=== PATIENT | male | born 1960 | race Caucasian/White ===

== ENCOUNTER → 2018-05-17 | Outpatient (CLI) | payer OTHER ==
[2018-05-17 08:17] LABS: Blood Urea Nitrogen 15 mg/dL (9-20)
--- NOTE | 2018-05-17 12:09 | CT ---
EXAMINATION TYPE: CT iac wo con DATE OF EXAM: 05/17/2018 COMPARISON: HISTORY: Hearing Loss CT DLP: 786.60mGycm Automated exposure control for dose reduction was used. FINDINGS: The external auditory canals are patent bilaterally. Mastoid air cells show no evidence of abnormal opacification bilaterally. The middle ear ossicles are symmetric and unremarkable. There is no evidence of suspicious surrounding soft tissue density to suggest cholesteatoma. The scutum is preserved bilaterally. The cochlea and the semicircular canals are symmetric and unremarkable. Ves tibular aqueduct and internal carotid canal appear unremarkable. Temporomandibular joints are mainta ined bilaterally. Mild mucosal disease present in the maxillary sinuses. IMPRESSION: No significant abnormality seen to account for patient's symptoms.
--- NOTE | 2018-05-17 12:11 | CT ---
EXAMINATION TYPE: CT soft tissue neck w con DATE OF EXAM: 05/17/2018 9:00 AM COMPARISON: None HISTORY: Hearing loss CT DLP: 150.00 mGycm Automated exposure control for dose reduction was used. CONTRAST: CT scan of the neck is performed following with IV Contrast, patient injected with 100 ml mL of Isovu e 300. Axial images are obtained, coronal and sagittal reformatted images are reviewed. FINDINGS: Airway: No gross abnormality seen. Parotid/submandibular glands: No gross abnormality seen. Carotid/Vascular Structures: Patent. No evident internal carotid artery stenosis. Left vertebral zackery ry is dominant. Osseous Structures: Degenerative disc changes are present in the visualized cervical spine. Other: Lung apices are unremarkable. No evident adenopathy. IMPRESSION: No significant abnormalities evident
== END | disposition home or self-care (01) ==
LOC: RADCTMAIN 07:32
DX: H91.8X3 Other specified hearing loss, bilateral (principal)
CPT/HCPCS: 82565; 84520; 70491; 70480; 36415; Q9967

== ENCOUNTER → 2019-01-31 | Outpatient (CLI) | payer BC, OTHER ==
--- NOTE | 2019-01-31 16:52 | PN ---
PROGRESS NOTE DATE OF SERVICE: 01/31/2019 This patient is a 58-year-old gentleman who has [facility] treatment of obstructive sleep apnea-hypopnea syndrome. Patient continues to use CPAP equipment every night for the whole night but recently developed episodes of awakenings from sleep multiple times while using his CPAP equipment. [place] Sleepiness Scale today is 10, which is above normal range. His weight has increased 40 pounds, and I recommended repeating the sleep study about half a year ago, but for different reasons it was not done. MEDICATIONS: 1. Metformin. 2. Lisinopril/hydrochlorothiazide. 3. Simvastatin. 4. Lyrica. 5. Naproxen. 6. Amitriptyline. 7. Imodium on a p.r.n. basis. PHYSICAL EXAMINATION: GENERAL: A pleasant gentleman without distress. VITAL SIGNS: BP 126/83, HR 91, RR 16, height 6 feet 3 inches, weight 339, temperature 98.2, oxygen saturation at room air 94%. HEENT: PERRLA, EOMI. Evaluation of oropharynx showed tongue protrudes midline. Extremely low position of soft palate. Mallampati IV. NECK: Supple. No JVD. Thyroid is not palpable. LUNGS: Clear to percussion and to auscultation. Good air exchange. No wheezing or rhonchi. HEART: S1, S2 regular. No murmurs, gallops or rubs. ABDOMEN: Obese. EXTREMITIES: One plus ankle edema. SENIOR PEOPLESOFT DEVELOPER: Awake, alert, and oriented X3. Cranial nerves 2 to 7 intact. There is no fasciculation or atrophy. noted. No focal deficits observed. IMPRESSION: 1. Obstructive sleep apnea-hypopnea syndrome. The patient continues to use his machine, but his weight has increased by around 40 pounds and he has awakenings from sleep and sleepiness during the day. 2. Obesity. 3. Hypertension. 4. Hyperlipidemia. 5. Diabetes mellitus. 6. History of floppy eyelid syndrome, status post surgical treatment. 7. Left knee problems. 8. Status post tonsillectomy. 9. Status post cholecystectomy. 10.Post-traumatic stress disorder. 11.History of irritable bowel syndrome. PLAN: 1. Repeat CPAP titration for re-evaluation of effective CPAP pressure at the present time. 2. Losing weight. 3. Sleep hygiene with regular time in bed for at least 8 hours. 4. Continue to use CPAP equipment every night. Thank you very much for allowing me to participate in the management of your patient. Sincerely, Ozzie Schuler MD, PhD, FAASM Diplomat of [place] [employer] [place] [employer]ing Clerk [facility] [place] MMODL / LEVIN: [phone] /
== END | disposition home or self-care (01) ==
LOC: SLEEP 15:25
PROVIDERS: ATTEND Internal Medicine
DX: G47.33 Obstructive sleep apnea (adult) (pediatric) (principal); E66.9 Obesity, unspecified; I10 Essential (primary) hypertension; E78.5 Hyperlipidemia, unspecified; E11.9 Type 2 diabetes mellitus without complications; F43.10 Post-traumatic stress disorder, unspecified; M25.9 Joint disorder, unspecified; Z87.19 Personal history of other diseases of the digestive system; Z86.69 Personal history of other diseases of the nervous system and sense organs; Z99.89 Dependence on other enabling machines and devices; Z90.49 Acquired absence of other specified parts of digestive tract; Z90.09 Acquired absence of other part of head and neck; Z98.890 Other specified postprocedural states; Z79.84 Long term (current) use of oral hypoglycemic drugs; Z79.1 Long term (current) use of non-steroidal anti-inflammatories (NSAID); Z79.899 Other long term (current) drug therapy
CPT/HCPCS: 99211

== ENCOUNTER 2019-02-01 06:47 | Day surgery (SDC) | payer BC, OTHER ==
[2019-01-30 16:08] VITALS: BMI 41.8
[~2019-02-01 06:47] MED LIST: LACTATED RINGERS 1,000 ML IV SCH; LIDOCAINE 1% 20 ML VIAL (10MG/ML) FOR IV START INTRADERMA PRN
[2019-02-01 07:00] VITALS: RESP 18; TEMP 97
[2019-02-01] MEDS ORDERED: LACTATED RINGERS 1,000 ML IV ONE (07:00)
[2019-02-01 07:06] LABS: Glucose,Whole Blood 170 mg/dL (75-99)
[2019-02-01] MEDS ORDERED: PROPOFOL 10 MG/ML 20 ML VIAL IV ONE (07:39)
--- NOTE | 2019-02-01 08:13 | P.PCN ---
Date of Procedure: 02/01/19 Description of Procedure: BRIEF HISTORY: Patient is a 58-year-old pleasant male scheduled for an elective colonoscopy as a part of melena and altered bowel habits. The patient reports that at baseline he has loose bowel movements and that this is been present for results he can remember. He states he has been diagnosed with IBS past. However he has had some altered bowel habits recently with constipation reported. He denies any bright red blood per rectum. He denies any prior colonoscopy. No family history CANCER. PROCEDURE PERFORMED: Colonoscopy. PREOPERATIVE DIAGNOSIS: Melena, altered bowel habits, no prior colonoscopy reported. ESTIMATED BLOOD LOSS: Minimal. IV sedation per Anesthesia. PROCEDURE: After informed consent was obtained, the patient, was brought into the endoscopy unit. IV sedation was administered by Anesthesia under continuous monitoring. Digital rectal examination was normal. Initially the Olympus CF-190 flexible video colonoscope was then inserted in the rectum, gradually advanced into the cecum without any difficulty. The terminal ileum was intubated and appeared normal. Careful examination was performed as the scope was gradually being withdrawn. Ileocecal valve and the appendiceal orifice were visualized and appeared normal. Prep was excellent. Mucosa of the cecum, ascending colon, transverse colon, descending colon, sigmoid colon, and rectum appeared normal. Retroflexion was performed in the rectum and no lesions were seen, with mild internal hemorrhoids noted. The patient tolerated the procedure well. IMPRESSION: Normal-appearing colon from rectum to cecum and normal appearing terminal ileum. Mild internal hemorrhoids RECOMMENDATIONS: Findings of this examination were discussed with the patient. Okay to resume diet. Okay to resume medications. Recommendation is for repeat colonoscopy in 10 years or sooner if signs or symptoms which warrant evaluation developed.
[2019-02-01 08:54] VITALS: BP 151/93; PULSE 76
== END 2019-02-01 09:14 | disposition home or self-care (01) ==
LOC: ORWHC2ENDO 06:47
PROVIDERS: ATTEND Internal Medicine
DX: R19.4 Change in bowel habit (principal); K92.1 Melena; K64.8 Other hemorrhoids; I10 Essential (primary) hypertension; G47.33 Obstructive sleep apnea (adult) (pediatric); Z99.89 Dependence on other enabling machines and devices; E11.9 Type 2 diabetes mellitus without complications; Z79.84 Long term (current) use of oral hypoglycemic drugs; E66.9 Obesity, unspecified; Z68.41 Body mass index [BMI] 40.0-44.9, adult
CPT/HCPCS: 45378; J2704

== ENCOUNTER → 2019-08-14 | Outpatient (CLI) | payer OTHER ==
[2019-08-14 15:14] LABS: Basophils % (A) 1 %; Eosinophils # (A) 0.2 k/uL (0-0.7); Eosinophils % (A) 3 %; HGB 14.1 gm/dL (13.0-17.5); Lymphocytes # (A) 2.1 k/uL (1.0-4.8); Lymphocytes % (A) 34 %; MCH 29.9 pg (25.0-35.0); MCHC 33.5 g/dL (31.0-37.0); MCV 89.3 fL (80.0-100.0); Monocytes # (A) 0.3 k/uL (0-1.0); Monocytes % (A) 5 %; Neutrophils # (A) 3.4 k/uL (1.3-7.7); Neutrophils % (A) 56 %; Platelet Count 199 k/uL (150-450); RDW 13.1 % (11.5-15.5); WBC 6.1 k/uL (3.8-10.6)
[2019-08-14 15:22] LABS: ABG Base Excess 2.5 mmol/L; ABG HCO3 27 mmol/L (21-25); ABG Oxygen Saturation 93.5 % (94-97); ABG PCO2 39 mmHg (35-45); ABG PH 7.44 (7.35-7.45); ABG PO2 70 mmHg (83-108); ABG TCO2 28 mmol/L (19-24); Allen Test Performed? Yes
[2019-08-15 00:08] LABS: African American GFR (CKD) 84.7 (60.0-200.0); Anion Gap 10.8 mmol/L (4.00-12.00); BUN/Creat Ratio 9.09 Ratio (12.00-20.00); Calcium 9.5 mg/dL (8.7-10.3); Carbon Dioxide 30.2 mmol/L (21.6-31.8); Non-African American GFR(CKD) 73.1 (60.0-200.0); Potassium 4.7 mmol/L (3.5-5.5)
== END | disposition home or self-care (01) ==
LOC: LABWHC1 14:51
PROVIDERS: ATTEND Internal Medicine
DX: R06.00 Dyspnea, unspecified (principal)
CPT/HCPCS: 36415; 36600; 80048; 82805; 85025; 85379

== ENCOUNTER → 2019-08-14 | Outpatient (CLI) | payer OTHER ==
--- NOTE | 2019-08-14 18:53 | CT ---
EXAMINATION TYPE: CT angio chest DATE OF EXAM: 08/14/2019 COMPARISON: None HISTORY: elevated d-dimer, leg swelling CT DLP: 605.5 mGycm Automated exposure control for dose reduction was used. There are 3-D post processed images. CONTRAST: Performed with IV Contrast, patient injected with 69cc mL of Isovue 370. The lungs are clear of infiltrate. There is no pleural effusion. There is no evidence of a pulmonary mass. heart size is normal. There is no pericardial effusion. There is some coronary artery calcific ation. Thoracic aorta appears intact without evidence of aneurysm. Ascending aorta measures 3.9 cm. T here is no mediastinal adenopathy. There are no hilar masses. There is normal contrast opacification of the pulmonary arteries. I see no filling defect. There are clips from cholecystectomy. Upper abdominal soft tissues appear intact. Thoracic vertebra have normal alignment. I see no bony destructive process in the bony thorax. IMPRESSION: No evidence of pulmonary embolism. Negative exam.
== END | disposition home or self-care (01) ==
LOC: RADCTMAIN 17:23
PROVIDERS: ATTEND Internal Medicine
DX: R06.02 Shortness of breath (principal)
CPT/HCPCS: 82565; 84520; 71275; 36415; Q9967

== ENCOUNTER → 2019-09-24 | Outpatient (CLI) | payer OTHER ==
[2019-09-24 16:27] LABS: HCT 44.1 % (39.0-53.0); MCH 30.6 pg (25.0-35.0); MCHC 34.1 g/dL (31.0-37.0); Mean Platelet Volume 8.4; Platelet Count 193 k/uL (150-450); RDW 12.4 % (11.5-15.5); WBC 6.7 k/uL (3.8-10.6)
[2019-09-24 16:30] LABS: Potassium 5.4 mmol/L (3.5-5.1)
== END | disposition home or self-care (01) ==
LOC: LABWHC1 15:06
PROVIDERS: ATTEND Internal Medicine Interventional Cardiology
DX: Z01.818 Encounter for other preprocedural examination (principal); R07.9 Chest pain, unspecified
CPT/HCPCS: 36415; 80051; 82565; 84520; 85027

== ENCOUNTER → 2021-01-22 | Outpatient (CLI) | payer OTHER | END | disposition home or self-care (01) ==

== ENCOUNTER → 2022-06-04 | Outpatient (CLI) | payer OTHER ==
[2022-06-04 22:50] LABS: Basophils # (A) 0.07 X 10*3/uL (0.00-0.10); Basophils % (A) 1.1 %; Eosinophils # (A) 0.27 X 10*3/uL (0.04-0.35); Eosinophils % (A) 4.3 %; HCT 46.8 % (39.6-50.0); HGB 15.8 g/dL (13.0-17.0); Immature Grans, Automated 0.3 %; Lymphocytes # (A) 2.15 X 10*3/uL (0.90-5.00); Lymphocytes % (A) 34.1 %; MCH 31.2 pg (27.0-32.0); MCHC 33.8 g/dL (32.0-37.0); MCV 92.3 fL (80.0-97.0); Mean Platelet Volume 10.7 fL (9.5-12.2); Monocytes # (A) 0.57 X 10*3/uL (0.20-1.00); NRBC Per 100 WBC 0 /100 WBCS (0.0-0.0); Neutrophils # (A) 3.22 X 10*3/uL (1.80-7.70); Neutrophils % (A) 51.2 %; Platelet Count 187 X 10*3/uL (140-440); RBC 5.07 X 10*6/uL (4.40-5.60); RDW 12.5 % (11.5-14.5)
[2022-06-04 23:32] LABS: African American GFR (CKD) 74.7 (60.0-200.0); Anion Gap 10.1 mmol/L (10.00-18.00); BUN/Creat Ratio 14.42 Ratio (12.00-20.00); Blood Urea Nitrogen 17.3 mg/dL (9.0-27.0); Calcium 9.6 mg/dL (8.7-10.3); Carbon Dioxide 30.9 mmol/L (20.0-27.5); Non-African American GFR(CKD) 64.4 (60.0-200.0); Potassium 4.6 mmol/L (3.5-5.5)
== END | disposition home or self-care (01) ==
LOC: LABPAT 15:37
PROVIDERS: ATTEND Orthopaedic Surgery Hand Surgery
DX: Z01.818 Encounter for other preprocedural examination (principal); G56.01 Carpal tunnel syndrome, right upper limb; R94.31 Abnormal electrocardiogram [ECG] [EKG]
CPT/HCPCS: 80048; 85025; 93005

== ENCOUNTER 2022-06-09 12:57 | Day surgery (SDC) | payer OTHER ==
[2022-06-07 11:47] VITALS: BMI 34.9
--- NOTE | 2022-06-08 10:10 | P.HPOR ---
History of Present Illness H&P Date: 06/08/22 Chief Complaint: Right carpal tunnel syndrome Subjective: This is a 61 year old male that presents today for follow up evaluation regarding a several year history of progressively worsening right hand paresthesias in the thumb, index, middle and ring fingers. They have tried braces at night with little relief. They deny any inciting event or neck pain. He notices some weakness and loss of manager facility strength. Physical Examination: RUE: AIN/PIN/Radial/Ulnar/Median motor intact. Radial/Ulnar/Median SILT. 2+/4 Radial/Ulnar pulses palpated. 5/5 APB, 5/5 FDI. Negative Finkelsteins, negative CMC grind, positive Durkan's compression. Impression: 1.) Right carpal tunnel syndrome Plan: Diagnosis and treatment options were discussed with the patient. The patient has failed conservative treatment and would like to pursue a right endoscopic vs open carpal tunnel release. Risks and benefits of surgery including bleeding, infection, damage to surrounding tissue, need for further surgery, possible need to convert to open procedure, residual numbness were discussed and the patient wished to go forward with surgery. Follow up: 2 weeks post op -Cruzito Goncalves DO Orthopedic Hand/Upper Extremity Surgeon Past Medical History Past Medical History: Diabetes Mellitus, Hypertension, Sleep Apnea/CPAP/BIPAP Additional Past Medical History / Comment(s): IBS, USES C-PAP MACHINE, History of Any Multi-Drug Resistant Organisms: None Reported Past Surgical History: Cholecystectomy, Orthopedic Surgery, Tonsillectomy Additional Past Surgical History / Comment(s): FINGER SURGERY, ELBOW SURGERY. COLONOSCOPY Past Anesthesia/Blood Transfusion Reactions: No Reported Reaction Smoking Status: Never smoker - Past Family History Mother Family Medical History: Cancer Additional Family Medical History / Comment(s): FEMALE CANCER. Medications and Allergies Home Medications Medication Instructions Recorded Confirmed Type Cholecalciferol (Vitamin D3) 2,000 unit PO BID 01/30/19 06/07/22 History [Vitamin D3] Logan-3 Fatty Acids/Fish Oil [Fish 1 each PO DAILY 01/30/19 06/07/22 History Oil 1,000 mg Softgel] Losartan [Cozaar] 100 mg PO QAM 09/25/19 06/07/22 History Potassium Chloride [Klor-Con 20] 20 meq PO BID 09/25/19 06/07/22 History Amitriptyline HCl [Elavil] 100 mg PO HS 06/07/22 06/07/22 History Aspirin EC [Ecotrin Low Dose] 81 mg PO DAILY 06/07/22 06/07/22 History Cyanocobalamin (Vitamin B-12) 1,000 mcg PO DAILY 06/07/22 06/07/22 History [Vitamin B-12] Empagliflozin [Jardiance] 25 mg PO DAILY 06/07/22 06/07/22 History Furosemide [Lasix] 40 mg PO DAILY 06/07/22 06/07/22 History Pravastatin Sodium [Pravachol] 80 mg PO HS 06/07/22 06/07/22 History Prazosin [Minipress] 1 mg PO HS 06/07/22 06/07/22 History Pregabalin [Lyrica] 200 mg PO BID 06/07/22 06/07/22 History Zinc Gluconate [Zinc] 50 mg PO DAILY 06/07/22 06/07/22 History amLODIPine [Norvasc] 5 mg PO DAILY 06/07/22 06/07/22 History Allergies Allergy/AdvReac Type Severity Reaction Status Date / Time No Known Allergies Allergy Verified 06/07/22 11:36 Physical Examination Osteopathic Statement: *. No significant issues noted on an osteopathic structural exam other than those noted in the History and Physical/Consult.
[~2022-06-09 12:57] MED LIST changes: +DEXAMETHASONE SOD PHOSPHATE 4 MG/ML 1 ML VIAL IV ONE; +HYDROmorphone 0.5 MG/0.5 ML SYRINGE IVP PRN; -LIDOCAINE 1% 20 ML VIAL (10MG/ML) FOR IV START INTRADERMA PRN; +MIDAZOLAM 2 MG/2 ML VIAL IV PRN; +ONDANSETRON 4 MG/2 ML VIAL IVP ONE; +Pre Op ABX Message 1 EACH MISC MISCELLANE ONE; +SCOPOLAMINE 1 MG/72 HR PATCH TRANSDERM ONE
[2022-06-09 13:16] VITALS: RESP 16; TEMP 97.6
[2022-06-09 13:51] LABS: Glucose,Whole Blood 110 mg/dL (70-110)
[2022-06-09] MEDS ORDERED: LIDOCAINE 2% (PF) 20 MG/ML 10 ML AMP SQ ONE ×2 (14:21→14:39)
[2022-06-09] MEDS ORDERED: BUPIVACAINE (PF) 0.5% 30 ML VIAL SQ ONE ×2 (14:21→14:39)
[2022-06-09] MEDS ORDERED: MIDAZOLAM 2 MG/2 ML VIAL ONE (14:21)
[2022-06-09] MEDS ORDERED: HYDROmorphone (PF) 1 MG/ML ONE (14:21)
[2022-06-09] MEDS ORDERED: PROPOFOL 10 MG/ML 20 ML VIAL IV ONE (14:21)
[2022-06-09] MEDS ORDERED: fentaNYL (PF) 50 MCG/ML 2 ML AMP ONE (14:21)
[2022-06-09 15:22] VITALS: BP 120/75; PULSE 69
--- NOTE | 2022-06-10 09:15 | P.OP ---
Date of Procedure: 06/09/22 Preoperative Diagnosis: Right carpal tunnel syndrome Postoperative Diagnosis: Right carpal tunnel syndrome Procedure(s) Performed: Right endoscopic carpal tunnel release Anesthesia: MAC Surgeon: Cruzito Goncalves Estimated Blood Loss (ml): 0 Pathology: none sent Condition: stable Disposition: PACU Description of Procedure: This is a 61 year old male who presents today for a right endoscopic carpal tunnel release after having failed conservative treatment in the past. Risks and benefits of surgery were discussed with the patient including bleeding, damage to surrounding tissue, infection, need to convert to open procedure, need for further surgery as well as risks of anesthesia including pulmonary embolism and even and the patient wished to proceed with surgical intervention. The patients was seen in the pre-operative area by myself. Consent and H&P were completed and updated. The correct extremity was marked in the pre-operative area by myself and all other questions were answered. Operative Narrative: The patient was brought to the operating room by the department of anesthesia. They remained on the portable stretcher and a rolling hand table was brought to the side of the operative extremity. Pre-operative time out was performed indicating the correct patient, procedure and laterality. All in the room agreed. The patient was then drifted off to sleep by the department of anesthesia. MAC anesthesia was utilized and a 50:50 mixture of 1% Lidocaine and 0.5% bupivacaine was injected into the subcutaneous tissues of the palmar skin, 8ccs total. A nonsterile tourniquet was then applied to the operative extremity and the right upper extremity was then prepped and draped in normal sterile fashion. The operative extremity was the exsanguinated with an esmarch bandage and the tourniquet was inflated to 250mmHg. 15 blade scalpel was utilized to make a transverse incision on the palmar skin just ulnar to the palmaris longus tendon at the level of the distal wrist crease. Ragnell retractor was then placed radially and blunt dissection was performed to reveal the distal forearm fascia. This was lifted with fine Nicholas pick ups and Littler tenotomy scissors were then used to open the forearm fascia transversely and a double skin hook was then placed. Hamate finder was placed into the carpal tunnel and then sequential sized dilators were inserted followed by the synovial elevator to separate the flexor tenosynovium from the undersurface of the transverse carpal ligament and a washboard texture was felt. The MicroAire endoscopic carpal tunnel release system gun was the then inserted into the carpal tunnel hugging the deep portion of the transverse carpal ligament in line with the base of the ring finger. Transverse fibers of the ligament were directly visualized. Pressure was applied on the palm to reveal the distal extent of the transverse carpal ligament. The blade was then deployed and the distal half of the transverse carpal ligament was released. The scope was then brought distal again and remaining transverse fibers were incised with the blade. The proximal half of the transverse carpal ligament was then divided and again the scope was advanced distal and remaining transverse fibers were incised with the blade. The radial and ulnar leaflets were directly visualized and mobile consistent with complete release. Tenotomy scissors were then utilized to release the remaining distal forearm fascia under direct visualization taking care to preserve the palmar cutaneous branch of the median nerve. Skin closure was performed with interrupted 4-0 Monocryl suture followed by Mastisol and steri strips. Sterile dressing was applied consisting of adaptic, 4x4s, Webril, and an onofre bandage. Tourniquet was let down and the hand immediately was well perfused. The patient was then woken by the department of anesthesia and transferred to PACU in stable condition. Cruzito Goncalves D.O. Orthopedic Hand/Upper Extremity Surgeon
== END 2022-06-09 15:36 | disposition home or self-care (01) ==
LOC: OR 12:57
PROVIDERS: ATTEND Orthopaedic Surgery Hand Surgery
DX: G56.01 Carpal tunnel syndrome, right upper limb (principal); E11.9 Type 2 diabetes mellitus without complications; I10 Essential (primary) hypertension; G47.30 Sleep apnea, unspecified; K58.9 Irritable bowel syndrome, unspecified; Z90.49 Acquired absence of other specified parts of digestive tract; Z90.89 Acquired absence of other organs; Z98.890 Other specified postprocedural states; Z79.899 Other long term (current) drug therapy; Z79.82 Long term (current) use of aspirin; Z79.84 Long term (current) use of oral hypoglycemic drugs; Z99.89 Dependence on other enabling machines and devices
CPT/HCPCS: 29848; J2250; J1100; J2001; J2405; J3010; J1170; J2704